=== PATIENT | female | born 1955 ===

== ENCOUNTER 2017-04-24 09:36 | Outpatient (RCR) | payer OTHER | END 2017-05-10 | LOC: WCC 09:36 | PROVIDERS: ATTEND Plastic Surgery | DX: T81.89XA Other complications of procedures, not elsewhere classified, initial encounter (principal); Y83.1 Surgical operation with implant of artificial internal device as the cause of abnormal reaction of the patient, or of later complication, without mention of misadventure at the time of the procedure; E11.65 Type 2 diabetes mellitus with hyperglycemia; F33.1 Major depressive disorder, recurrent, moderate; Z85.3 Personal history of malignant neoplasm of breast | CPT/HCPCS: 36415; 82948; G0463 ==